=== PATIENT | male | born 1975 ===

== ENCOUNTER → 2018-07-09 21:01 | Outpatient (REF) | payer OTHER, SELFPAY ==
[2018-07-09 21:37] LABS: HEMOLYSIS < 15 (0-50)
[2018-07-09 21:43] LABS: Alanine Aminotransferase 39 IU/L (21-72); Albumin 4.3 g/dL (3.5-5.0); Albumin Globulin Ratio 1.6 (1.0-2.8); Alkaline Phosphatase 66 U/L (38-126); Aspartate Aminotransferase 33 IU/L (17-59); BUN Creatinine Ratio 21.3 (6-22); Bilirubin Total 0.7 mg/dL (0.2-1.3); Blood Urea Nitrogen 17 mg/dL (9-20); Calcium 9.5 mg/dL (8.4-10.2); Carbon Dioxide 26 mmol/L (22-32); Chloride 102 mmol/L (98-107); Cholesterol 235 mg/dL (140-199); Estimated Glomerular Filt Rate > 60.0 mL/min (>60); Globulin 2.7 g/dL (1.7-4.1); Glucose 109 mg/dL (70-100); HDL Cholesterol 39 mg/dL (40-60); LDL Cholesterol Calculated 177 mg/dL (<100); Potassium 4.2 mmol/L (3.4-5.1); Sodium 142 mmol/L (137-145); Triglycerides 95 mg/dL (35-150)
[2018-07-09 23:28] LABS: Luteinizing Hormone 2.02 mIU/mL
[2018-07-10 20:54] LABS: Add Manual Diff / Slide Review NO; Basophils Percent Auto 1.5 % (0-2); Eosinophils Percent Auto 11.6 % (2-4); Hematocrit 47.4 % (41-53); Hemoglobin 15.5 g/dL (13.5-17.5); Lymphocytes Percent Auto 35.2 % (25-40); Mean Corpuscular HGB Conc 32.7 % (30-36); Mean Corpuscular Volume 91.6 fL (80-100); Monocytes Percent Auto 7.6 % (3-14); Neutrophils Absolute Auto 2700 /uL (1500-7000); Neutrophils Percent Auto 44.1 % (50-75); Platelet Count 229 X10^3/uL (150-400); Red Blood Cell Count 5.17 X10^6/uL (4.5-5.9); Red Cell Distribution Width 14.6 % (11.6-14.8); White Blood Cell Count 6.1 X10^3/uL (4.5-11.0)
[2018-07-10 21:02] LABS: Hemoglobin A1C% w Est Avg Glu 8.4 % (4.0-6.0)
[2018-07-11 18:42] LABS: Sex Hormone Binding Globulin 50 nmol/L (10-50)
[2018-07-12 19:36] LABS: HIV Ag/Ab, 4th Gen Nonreactive (Nonreactive)
[2018-07-13 14:52] LABS: PSA Total 0.82 ng/mL (< 4.01)
[2018-07-13 15:04] LABS: Dehydroepiandrosterone Sulfate 183 mcg/dL (70-495)
[2018-07-13 17:27] LABS: Testosterone Free 34.8 pg/mL (35.0-155.0); Testosterone Total 466 ng/dL (250-1100)
[2018-07-15 14:29] LABS: Z- Score (Male) -0.3 SD (-2.0 - +2.0)
== END ==
LOC: LAB 21:01
PROVIDERS: Visit Provider Family Medicine
DX: E29.1 Testicular hypofunction (principal); Z13.89 Encounter for screening for other disorder; R63.5 Abnormal weight gain; Z11.4 Encounter for screening for human immunodeficiency virus [HIV]
CPT/HCPCS: 36415; 80053; 80061; 82627; 83002; 83036; 84153; 84154; 84270; 84305; 84402; 84403; 85025; 86703

== ENCOUNTER → 2018-11-09 20:50 | Outpatient (ROUT) | payer OTHER, SELFPAY ==
[2018-11-09 21:31] LABS: Add Manual Diff / Slide Review NO; Basophils Absolute Auto 100 /uL (0-100); Basophils Percent Auto 1.3 % (0-2); Eosinophils Absolute Auto 300 /uL (0-450); Eosinophils Percent Auto 5.2 % (2-4); Lymphocytes Absolute Auto 2100 /uL (1100-4500); Lymphocytes Percent Auto 35.9 % (25-40); Mean Corpuscular HGB Conc 32.1 % (30-36); Mean Corpuscular Hemoglobin 29.7 PG (26-34); Mean Corpuscular Volume 92.7 fL (80-100); Monocytes Absolute Auto 400 /uL (0-900); Neutrophils Absolute Auto 3000 /uL (1500-7000); Neutrophils Percent Auto 50.6 % (50-75); Platelet Count 247 X10^3/uL (150-400); Red Blood Cell Count 5.39 X10^6/uL (4.5-5.9); Red Cell Distribution Width 13.8 % (11.6-14.8)
[2018-11-09 21:37] LABS: Alanine Aminotransferase 37 IU/L (21-72); Albumin 4.5 g/dL (3.5-5.0); Albumin Globulin Ratio 1.5 (1.0-2.8); Alkaline Phosphatase 54 U/L (38-126); Aspartate Aminotransferase 29 IU/L (17-59); BUN Creatinine Ratio 22.5 (6-22); Bilirubin Total 0.7 mg/dL (0.2-1.3); Blood Urea Nitrogen 18 mg/dL (9-20); Calcium 9.3 mg/dL (8.4-10.2); Carbon Dioxide 27 mmol/L (22-32); Chloride 102 mmol/L (98-107); Cholesterol 253 mg/dL (140-199); Estimated Glomerular Filt Rate > 60.0 mL/min (>60); Glucose 133 mg/dL (70-100); HDL Cholesterol 41 mg/dL (40-60); HEMOLYSIS < 15 (0-50); LDL Cholesterol Calculated 195 mg/dL (<100); Potassium 4.3 mmol/L (3.4-5.1); Sodium 140 mmol/L (137-145); Total Protein 7.5 g/dL (6.3-8.2); Triglycerides 83 mg/dL (35-150)
[2018-11-09 22:11] LABS: Hepatitis B Surface Antigen NEGATIVE s/c (NEGATIVE)
[2018-11-09 22:29] LABS: Hemoglobin A1C% w Est Avg Glu 6.2 % (4.0-6.0)
[2018-11-12 14:30] LABS: HIV Ag/Ab, 4th Gen Nonreactive (Nonreactive)
[2018-11-14 09:24] LABS: Hepatitis B Core Antibody Nonreactive (Nonreactive)
[2018-11-14 16:16] LABS: Hepatitis B Surf AB Imm QUANT < 5 mIU/mL (> 9)
== END ==
PROVIDERS: Visit Provider Family Medicine
DX: E11.9 Type 2 diabetes mellitus without complications (principal); E78.00 Pure hypercholesterolemia, unspecified; Z20.2 Contact with and (suspected) exposure to infections with a predominantly sexual mode of transmission
CPT/HCPCS: 36415; 80053; 80061; 83036; 85025; 86317; 86703; 86704; 87340